=== PATIENT | male | born 1945 | race Caucasian/White ===

== ENCOUNTER 2025-01-27 11:54 | Emergency (ER) | payer MEDICARE | END 2025-01-27 13:05 | disposition home or self-care (01) | LOC: DL.ED 11:54 | DX: S01.01XA Laceration without foreign body of scalp, initial encounter (principal); E78.00 Pure hypercholesterolemia, unspecified; I50.9 Heart failure, unspecified; I25.10 Atherosclerotic heart disease of native coronary artery without angina pectoris; Z95.5 Presence of coronary angioplasty implant and graft; Z79.82 Long term (current) use of aspirin; Z79.899 Other long term (current) drug therapy; W01.198A Fall on same level from slipping, tripping and stumbling with subsequent striking against other object, initial encounter; Y92.481 Parking lot as the place of occurrence of the external cause | CPT/HCPCS: 70450; 72125; 99283 ==

== ENCOUNTER 2025-06-16 08:52 | Emergency (ER) | payer MEDICARE, BC ==
[2025-06-16 09:29] LABS: BASOPHILS PERCENT AUTO 0.6 % (0.0-1.0); EOSINOPHILS PERCENT AUTO 0.8 % (1.0-3.0); LYMPHOCYTES PERCENT AUTO 7.8 % (20.5-50.1); MONOCYTES PERCENT AUTO 6.8 % (2-8); NEUTROPHILS PERCENT AUTO 84.0 % (42.2-75.2); PLATELET COUNT,PLT 270 10^3/uL (150-450); RED BLOOD CELL COUNT 2.47 10^6/uL (4.6-6.2); WHITE BLOOD CELL COUNT,WBC 6.4 10^3/uL (5.0-10.0)
[2025-06-16 09:46] LABS: A/G RATIO 1.5; ALANINE AMINOTRANSFERASE,ALT 35.0 U/L (16-63); ASPARTATE AMNIOTRANSFERASE,AST 27.0 U/L (15-37); BILIRUBIN TOTAL 1.7 mg/dL (0.2-1.0); BLOOD UREA NITROGEN,BUN 22.0 mg/dL (7-18); CARBON DIOXIDE,CO2 29.0 mmol/L (21-32); CHLORIDE,CL 104.0 mmol/L (98-107); CREATININE 0.68 mg/dL (0.70-1.30); EST CRCL DRUG DOSING (CG) 93.82 mL/min; GLUCOSE RANDOM 139.0 mg/dL (70-99); POTASSIUM,K 3.8 mmol/L (3.5-5.1); PROTEIN TOTAL,TP 6.6 g/dL (6.4-8.2); SODIUM,NA 140.0 mmol/L (136-145)
[2025-06-16 09:48] LABS: B-TYPE NATRIURETIC PEPTIDE,BNP 43.0 pg/ml (0-100); ESTIMATED GFR 95.0 mL/min (>=60)
[2025-06-16] MEDS: Ketorolac 30 MG/ML SDV IVPUSH ONE (10:33)
[2025-06-16] MEDS: Iopamidol 612 MG/ML 100 ML Bottle IVPUSH ONE (10:44)
== END 2025-06-16 11:11 | disposition home or self-care (01) ==
LOC: DL.ED 08:52
DX: R55 Syncope and collapse (principal); I50.9 Heart failure, unspecified; E78.00 Pure hypercholesterolemia, unspecified; I25.10 Atherosclerotic heart disease of native coronary artery without angina pectoris; Z79.82 Long term (current) use of aspirin; Z79.899 Other long term (current) drug therapy
CPT/HCPCS: 36415; 70450; 71260; 74177; 80053; 83880; 84484; 85025; 93005; 93010; 96374; 99284; 99284-25; A9270-GY; J1885; Q9967